=== PATIENT | male | born 1965 | race Caucasian/White ===

== ENCOUNTER 2021-12-30 06:12 | Emergency (ER) | payer MEDICAID ==
[~2021-12-30] VITALS: Ht 180.3 cm; Wt 127.3 kg
[2021-12-30 06:39] VITALS: BP 118/69
== END 2021-12-30 08:35 | disposition left against medical advice (07) ==
LOC: ER 06:14
DX: T23.022A Burn of unspecified degree of single left finger (nail) except thumb, initial encounter (principal); Z53.21 Procedure and treatment not carried out due to patient leaving prior to being seen by health care provider; X19.XXXA Contact with other heat and hot substances, initial encounter; Y93.89 Activity, other specified; Y92.89 Other specified places as the place of occurrence of the external cause; Y99.8 Other external cause status

== ENCOUNTER 2021-12-31 12:17 | Emergency (ER) | payer MEDICAID ==
[~2021-12-31] VITALS: Ht 180.3 cm; Wt 123.6 kg
[2021-12-31 13:40] LABS: BASOPHILS # (AUTO) 0.1 X10'3 (0-0.2); BASOPHILS % (AUTO) 0.9 % (0-1); EOSINOPHILS # (AUTO) 0.1 X10'3 (0-0.9); EOSINOPHILS % (AUTO) 1.4 % (0-6); HEMOGLOBIN 14.8 g/dl (14.0-17.9); LYMPHOCYTES # (AUTO) 1.8 X10'3 (1.1-4.8); LYMPHOCYTES % (AUTO) 22.8 % (21-51); MEAN CORPUSCULAR HEMOGLOBIN 29.9 PG (27.0-31.0); MEAN CORPUSCULAR HGB CONC 33.7 g/dL (33.0-36.5); MEAN CORPUSCULAR VOLUME 88.8 FL (78-98); MEAN PLATELET VOLUME 7.6 FL (7.4-10.4); MONOCYTES # (AUTO) 0.4 X10'3 (0-0.9); MONOCYTES % (AUTO) 4.7 % (2-12); NEUTROPHILS # (AUTO) 5.6 X10'3 (1.8-7.7); NEUTROPHILS % (AUTO) 70.2 % (42-75); PLATELET COUNT 205 X10'3 (140-440); RED BLOOD COUNT 4.95 X10'6 (4.70-6.10)
[2021-12-31 13:48] LABS: ALANINE AMINOTRANSFERASE 23 U/L (12-78); ALBUMIN 3.8 G/DL (3.4-5.0); ALBUMIN/GLOBULIN RATIO 1.1 (1.1-1.5); ALKALINE PHOSPHATASE 70 IU/L (46-116); ANION GAP 14 (8-16); ASPARTATE AMINO TRANSFERASE 20 U/L (10-37); BILIRUBIN,TOTAL 0.2 MG/DL (0.1-1.0); BLOOD UREA NITROGEN 14 MG/DL (7-18); BUN/CREATININE RATIO 19.7 (5.4-32.0); CALCIUM 8.2 MG/DL (8.5-10.1); CHLORIDE 104 MMOL/L (99-107); CREATININE 0.71 MG/DL (0.60-1.10); GLUCOSE 97 MG/DL (70-104); POTASSIUM 3.7 MMOL/L (3.5-5.1); SODIUM 142 MMOL/L (135-145); TOTAL CARBON DIOXIDE 24.4 MMOL/L (24-32); TOTAL PROTEIN 7.3 G/DL (6.4-8.2); eGFR > 90 ML/MIN
[2021-12-31 13:54] LABS: ETHANOL 0.303 GM/DL (0.0-0.010)
[2021-12-31 14:26] VITALS: BP 143/79
--- NOTE | 2021-12-31 14:59 | NUR ---
PT PASSED AMBULATION TRIAL, APPPROX 100 FEET WITH STEADY GAIT. PROVIDER PRESENT AND AWARE.
== END 2021-12-31 15:00 | disposition home or self-care (01) ==
LOC: ER 12:17
DX: F10.129 Alcohol abuse with intoxication, unspecified (principal); R41.82 Altered mental status, unspecified; Y90.9 Presence of alcohol in blood, level not specified
CPT/HCPCS: 36415; 70450; 80053; 80320; 85025; 99284

== ENCOUNTER 2021-12-31 20:10 | Emergency (ER) | payer MEDICAID ==
[~2021-12-31] VITALS: Ht 175.3 cm; Wt 123.0 kg
[2021-12-31] MEDS ORDERED: naloxone 0.4 mg/ml inj IV ONE (20:20)
[2021-12-31] MEDS ORDERED: normal saline 1000ML IV soln IVB ONE (20:25)
[2021-12-31] MEDS ORDERED: naloxone 2mg/2ml inj IV ONE (20:25)
[2021-12-31 20:44] LABS: BASOPHILS # (AUTO) 0.1 X10'3 (0-0.2); BASOPHILS % (AUTO) 1.4 % (0-1); EOSINOPHILS # (AUTO) 0.1 X10'3 (0-0.9); EOSINOPHILS % (AUTO) 1.7 % (0-6); HEMATOCRIT 43.9 % (42.0-52.0); HEMOGLOBIN 14.8 g/dl (14.0-17.9); LYMPHOCYTES # (AUTO) 1.9 X10'3 (1.1-4.8); MEAN CORPUSCULAR HEMOGLOBIN 29.8 PG (27.0-31.0); MEAN CORPUSCULAR HGB CONC 33.7 g/dL (33.0-36.5); MEAN CORPUSCULAR VOLUME 88.5 FL (78-98); MEAN PLATELET VOLUME 7.7 FL (7.4-10.4); MONOCYTES # (AUTO) 0.5 X10'3 (0-0.9); MONOCYTES % (AUTO) 5.5 % (2-12); NEUTROPHILS # (AUTO) 5.8 X10'3 (1.8-7.7); NEUTROPHILS % (AUTO) 68.4 % (42-75); PLATELET COUNT 222 X10'3 (140-440); RED BLOOD COUNT 4.97 X10'6 (4.70-6.10); RED CELL DISTRIBUTION WIDTH 12.7 % (11.5-14.5); WHITE BLOOD COUNT 8.5 X10'3 (4.5-11.0)
[2021-12-31 20:56] LABS: ALANINE AMINOTRANSFERASE 27 U/L (12-78); ALBUMIN 3.9 G/DL (3.4-5.0); ALBUMIN/GLOBULIN RATIO 1.1 (1.1-1.5); ALKALINE PHOSPHATASE 74 IU/L (46-116); ANION GAP 14 (8-16); ASPARTATE AMINO TRANSFERASE 21 U/L (10-37); BILIRUBIN,TOTAL 0.2 MG/DL (0.1-1.0); BLOOD UREA NITROGEN 16 MG/DL (7-18); BUN/CREATININE RATIO 19.3 (5.4-32.0); CALCIUM 8.3 MG/DL (8.5-10.1); CHLORIDE 104 MMOL/L (99-107); CREATININE 0.83 MG/DL (0.60-1.10); GLUCOSE 108 MG/DL (70-104); POTASSIUM 3.8 MMOL/L (3.5-5.1); SODIUM 142 MMOL/L (135-145); TOTAL CARBON DIOXIDE 23.8 MMOL/L (24-32); TOTAL PROTEIN 7.6 G/DL (6.4-8.2); eGFR > 90 ML/MIN
[2021-12-31 20:59] LABS: ETHANOL 0.367 GM/DL (0.0-0.010)
--- NOTE | 2021-12-31 22:12 | NUR ---
Patient snoring, still ALOC. Vitals are WNL.
[2022-01-01 05:43] VITALS: BP 153/62
[2022-01-02] MEDS ORDERED: NO HOME MEDS (13:00)
== END 2022-01-01 05:47 | disposition home or self-care (01) ==
LOC: ER 20:10
DX: F10.129 Alcohol abuse with intoxication, unspecified (principal); R41.82 Altered mental status, unspecified; Y90.9 Presence of alcohol in blood, level not specified
CPT/HCPCS: 36415; 71045; 80053; 80320; 85025; 93005; 96361; 96374; 99285; J2310; J7030

== ENCOUNTER 2022-01-02 10:19 | Emergency (ER) | payer MEDICAID, OTHER ==
[~2022-01-02] VITALS: Ht 180.3 cm; Wt 127.3 kg
--- NOTE | 2022-01-02 11:45 | NUR ---
Pt reports "I am going to kill myself and no one is listening to me." VIKTOR Crain notified. When asked if patient had a plan to kill himself, pt reponded with "I took 14 tablets of Vicodin." Pt reports taking Vicodin tablets within last 24 hours but does not recall what time. Pt reports taking alcohol and reports current intoxication. Poison control called at 1150 to report excessive use of Vicodin. Poison control recommended drawing labs to measure acetaminophen levels and use antidote as necessary. VIKTOR Crain notified of Poison Control's recommendations. Will continue to monitor.
[2022-01-02 12:17] LABS: BASOPHILS # (AUTO) 0.1 X10'3 (0-0.2); BASOPHILS % (AUTO) 0.7 % (0-1); EOSINOPHILS # (AUTO) 0.1 X10'3 (0-0.9); EOSINOPHILS % (AUTO) 1.3 % (0-6); HEMOGLOBIN 14.6 g/dl (14.0-17.9); LYMPHOCYTES # (AUTO) 1.8 X10'3 (1.1-4.8); LYMPHOCYTES % (AUTO) 20.1 % (21-51); MEAN CORPUSCULAR HEMOGLOBIN 30.3 PG (27.0-31.0); MEAN CORPUSCULAR VOLUME 88.9 FL (78-98); MEAN PLATELET VOLUME 7.5 FL (7.4-10.4); MONOCYTES # (AUTO) 0.5 X10'3 (0-0.9); NEUTROPHILS # (AUTO) 6.7 X10'3 (1.8-7.7); NEUTROPHILS % (AUTO) 72.9 % (42-75); PLATELET COUNT 193 X10'3 (140-440); RED BLOOD COUNT 4.84 X10'6 (4.70-6.10); WHITE BLOOD COUNT 9.2 X10'3 (4.5-11.0)
[2022-01-02 12:37] LABS: CLARITY,URINE CLEAR (Clear); COLOR,URINE YELLOW (Yellow); GLUCOSE, URINE NEGATIVE (Neg); KETONES,URINE 15 mg/dl (Neg); LEUKOCYTE ESTERASE ,URINE NEGATIVE (Neg); NITRITES, URINE NEGATIVE (Neg); OCCULT BLOOD,URINE TRACE-INTACT (Neg); PROTEIN,URINE NEGATIVE (Neg); UROBILINOGEN,URINE 0.2 E.U/dL (0.2-1.0)
[2022-01-02 12:39] LABS: UA COLLECTION TYPE NON-SPECIFIED
[2022-01-02 12:39] LABS: ALANINE AMINOTRANSFERASE 28 U/L (12-78); ALBUMIN 3.6 G/DL (3.4-5.0); ALKALINE PHOSPHATASE 72 IU/L (46-116); ANION GAP 14 (8-16); ASPARTATE AMINO TRANSFERASE 26 U/L (10-37); BILIRUBIN,TOTAL 0.3 MG/DL (0.1-1.0); BLOOD UREA NITROGEN 14 MG/DL (7-18); BUN/CREATININE RATIO 18.7 (5.4-32.0); CALCIUM 8.6 MG/DL (8.5-10.1); CHLORIDE 102 MMOL/L (99-107); CREATININE 0.75 MG/DL (0.60-1.10); GLUCOSE 103 MG/DL (70-104); POTASSIUM 3.7 MMOL/L (3.5-5.1); SODIUM 141 MMOL/L (135-145); TOTAL PROTEIN 7.1 G/DL (6.4-8.2); eGFR > 90 ML/MIN
[2022-01-02 12:40] LABS: URINE AMPHETAMINE SCREEN NEGATIVE (Neg); URINE BARBITUATE SCREEN NEGATIVE (Neg); URINE BENZODIAZEPINES SCREEN NEGATIVE (Neg); URINE CANNABINOID SCREEN NEGATIVE (Neg); URINE COCAINE SCREEN NEGATIVE (Neg); URINE METHADONE SCREEN NEGATIVE (Neg); URINE OPIATE SCREEN NEGATIVE (Neg); URINE PHENCYCLIDINE SCREEN NEGATIVE (Neg)
[2022-01-02 12:45] LABS: ETHANOL 0.261 GM/DL (0.0-0.010)
[2022-01-02 12:47] LABS: SQUAMOUS EPITHELIAL CELL,UR FEW /LPF (FEW)
[2022-01-02 12:48] LABS: BACTERIA,URINE FEW /HPF (Neg); RBC,URINE 0-2 /HPF (0-2); WBC,URINE 0-4 /HPF (0-4)
[2022-01-02 12:51] LABS: ACETAMINOPHEN < 2.0 UG/ML (10-30)
[2022-01-02] MEDS ORDERED: NO HOME MEDS (13:00)
--- NOTE | 2022-01-02 16:11 | NUR ---
Chi from Poison Control and was given update. No more suggestions from Poison Control.
--- NOTE | 2022-01-02 17:58 | NUR ---
Patient is sleeping on his right side. He has self repositioned. No distress.
--- NOTE | 2022-01-02 19:00 | NUR ---
Pt resting quietly in bed
--- NOTE | 2022-01-02 22:00 | NUR ---
Pt resting quietly in bed, no needs identified
--- NOTE | 2022-01-03 01:00 | NUR ---
PT is sleeping on R side respirations even and unlobored
--- NOTE | 2022-01-03 03:47 | NUR ---
pt is resting in bed quietly, drinking water
[2022-01-03 05:14] VITALS: BP 146/56
--- NOTE | 2022-01-03 07:06 | NUR ---
Received Pt in bed sleeping w/o distress at this time.
--- NOTE | 2022-01-03 09:00 | NUR ---
Pt ate breakfast and used bathroom. Pt quiet and responds to questions with short answers. Pt would like to stay here for a few days and then get back into sober living at [facility].
== END 2022-01-03 13:06 | disposition home or self-care (01) ==
LOC: ER 10:20
DX: I87.2 Venous insufficiency (chronic) (peripheral) (principal); Z20.822 Contact with and (suspected) exposure to COVID-19; R45.851 Suicidal ideations; F10.10 Alcohol abuse, uncomplicated; R22.43 Localized swelling, mass and lump, lower limb, bilateral; I10 Essential (primary) hypertension; Y90.8 Blood alcohol level of 240 mg/100 ml or more
CPT/HCPCS: 36415; 80053; 80305; 80320; 80329; 81001; 84443; 85025; 87811; 99285

== ENCOUNTER 2022-01-03 17:12 | Emergency (ER) | payer MEDICAID, OTHER ==
[~2022-01-03] VITALS: Ht 180.3 cm; Wt 127.2 kg
[~2022-01-03 17:12] MED LIST: NO HOME MEDS
[2022-01-03 17:25] VITALS: BP 135/88
== END 2022-01-03 18:01 | disposition left against medical advice (07) ==
LOC: ER 17:13
DX: F10.129 Alcohol abuse with intoxication, unspecified (principal); Z53.21 Procedure and treatment not carried out due to patient leaving prior to being seen by health care provider; Y90.9 Presence of alcohol in blood, level not specified

== ENCOUNTER 2022-01-07 10:21 | Emergency (ER) | payer MEDICAID ==
[~2022-01-07] VITALS: Ht 180.3 cm; Wt 122.7 kg
[2022-01-07 11:42] VITALS: BP 138/95
== END 2022-01-07 12:35 | disposition home or self-care (01) ==
LOC: ER 10:22
DX: I10 Essential (primary) hypertension (principal); Z72.89 Other problems related to lifestyle; Z59.00 Homelessness unspecified
CPT/HCPCS: 99281

== ENCOUNTER 2022-02-02 15:32 | Emergency (ER) | payer MEDICAID ==
[~2022-02-02] VITALS: Ht 180.3 cm; Wt 101.8 kg
[2022-02-02 15:58] VITALS: BP 152/81
[2022-02-02] MEDS ORDERED: NEOM10DR45 OT (16:04)
== END 2022-02-02 16:15 | disposition home or self-care (01) ==
LOC: ER 15:33
DX: S00.441A External constriction of right ear, initial encounter (principal); I10 Essential (primary) hypertension; Z59.00 Homelessness unspecified; W49.09XA Other specified item causing external constriction, initial encounter; Y93.89 Activity, other specified; Y92.89 Other specified places as the place of occurrence of the external cause; Y99.8 Other external cause status; H92.03 Otalgia, bilateral
CPT/HCPCS: 99283

== ENCOUNTER 2022-02-07 18:15 | Emergency (ER) | payer MEDICAID ==
[~2022-02-07] VITALS: Ht 175.3 cm; Wt 101.0 kg
[~2022-02-07 18:15] MED LIST changes: +NEOM10DR45 OT
[2022-02-07] MEDS ORDERED: normal saline 1000ML IV soln IVB ONE (21:00)
[2022-02-07 21:24] LABS: BASOPHILS % (AUTO) 0.4 % (0-1); EOSINOPHILS # (AUTO) 0.2 X10'3 (0-0.9); EOSINOPHILS % (AUTO) 3.5 % (0-6); HEMATOCRIT 41.6 % (42.0-52.0); LYMPHOCYTES # (AUTO) 2.5 X10'3 (1.1-4.8); LYMPHOCYTES % (AUTO) 38.8 % (21-51); MEAN CORPUSCULAR HGB CONC 33.7 g/dL (33.0-36.5); MEAN PLATELET VOLUME 8.1 FL (7.4-10.4); MONOCYTES # (AUTO) 0.4 X10'3 (0-0.9); MONOCYTES % (AUTO) 5.9 % (2-12); NEUTROPHILS # (AUTO) 3.3 X10'3 (1.8-7.7); NEUTROPHILS % (AUTO) 51.4 % (42-75); PLATELET COUNT 169 X10'3 (140-440); RED BLOOD COUNT 4.68 X10'6 (4.70-6.10); RED CELL DISTRIBUTION WIDTH 13.8 % (11.5-14.5); WHITE BLOOD COUNT 6.4 X10'3 (4.5-11.0)
[2022-02-07 21:29] LABS: ALANINE AMINOTRANSFERASE 24 U/L (12-78); ALBUMIN 3.4 G/DL (3.4-5.0); ALKALINE PHOSPHATASE 70 IU/L (46-116); ANION GAP 7 (8-16); ASPARTATE AMINO TRANSFERASE 22 U/L (10-37); BILIRUBIN,TOTAL 0.2 MG/DL (0.1-1.0); BLOOD UREA NITROGEN 15 MG/DL (7-18); BUN/CREATININE RATIO 16.7 (5.4-32.0); CALCIUM 8.3 MG/DL (8.5-10.1); CHLORIDE 108 MMOL/L (99-107); GLUCOSE 103 MG/DL (70-104); SODIUM 140 MMOL/L (135-145); TOTAL CARBON DIOXIDE 24.7 MMOL/L (24-32); TOTAL PROTEIN 6.9 G/DL (6.4-8.2); eGFR 86 ML/MIN
[2022-02-07 21:30] LABS: POTASSIUM 3.6 MMOL/L (3.5-5.1)
--- NOTE | 2022-02-07 22:45 | NUR ---
PT STABLE FOR DC PER DR. ALEXANDER. REMOVED PIV. PT ASKED TO GO TO BATHROOM. PT WALKE OUT OF ED WITHOUT SIGNING DC PAPERS. BRANCH OPERATIONS COORDINATOR NOTIIFED.
== END 2022-02-07 22:51 | disposition home or self-care (01) ==
LOC: ER 18:15
DX: F10.129 Alcohol abuse with intoxication, unspecified (principal); I10 Essential (primary) hypertension; Z59.00 Homelessness unspecified; Z56.0 Unemployment, unspecified; Y90.9 Presence of alcohol in blood, level not specified
CPT/HCPCS: 36415; 71045; 80053; 80320; 85025; 93005; 99285; J7030

== ENCOUNTER 2022-02-09 16:13 | Emergency (ER) | payer MEDICAID ==
[~2022-02-09] VITALS: Ht 180.3 cm; Wt 127.0 kg
[2022-02-09 16:37] VITALS: BP 124/70
== END 2022-02-09 18:50 | disposition left against medical advice (07) ==
LOC: ER 16:14
DX: R45.851 Suicidal ideations (principal); Z53.21 Procedure and treatment not carried out due to patient leaving prior to being seen by health care provider

== ENCOUNTER 2022-02-10 19:51 | Emergency (ER) | payer MEDICAID ==
[~2022-02-10] VITALS: Ht 180.3 cm; Wt 275.0 kg
[2022-02-10 20:27] VITALS: BP 148/85
--- NOTE | 2022-02-10 21:00 | NUR ---
Upon discharge, pt was refusing to leave and he required a information security specialist off the property.
== END 2022-02-10 21:16 | disposition home or self-care (01) ==
LOC: ER 19:52
DX: F10.920 Alcohol use, unspecified with intoxication, uncomplicated (principal); M25.561 Pain in right knee; M25.562 Pain in left knee; I10 Essential (primary) hypertension; Z59.00 Homelessness unspecified; Z56.0 Unemployment, unspecified
CPT/HCPCS: 99284

== ENCOUNTER 2022-02-11 13:11 | Emergency (ER) | payer MEDICAID ==
[~2022-02-11] VITALS: Ht 180.3 cm; Wt 123.6 kg
[2022-02-11] MEDS ORDERED: normal saline 1000ML IV soln IVB ONE (13:35)
[2022-02-11] MEDS ORDERED: thiamine 100mg/ml 2ml inj. IV ONE (13:35)
[2022-02-11] MEDS ORDERED: folic acid 1mg/0.2ml inj IV ONE (13:35)
[2022-02-11 14:13] LABS: BASOPHILS # (AUTO) 0.1 X10'3 (0-0.2); EOSINOPHILS # (AUTO) 0.1 X10'3 (0-0.9); EOSINOPHILS % (AUTO) 1.8 % (0-6); HEMATOCRIT 43.8 % (42.0-52.0); HEMOGLOBIN 15.2 g/dl (14.0-17.9); LYMPHOCYTES # (AUTO) 2.1 X10'3 (1.1-4.8); LYMPHOCYTES % (AUTO) 33.3 % (21-51); MEAN CORPUSCULAR HEMOGLOBIN 30.2 PG (27.0-31.0); MEAN CORPUSCULAR HGB CONC 34.7 g/dL (33.0-36.5); MEAN CORPUSCULAR VOLUME 87.1 FL (78-98); MEAN PLATELET VOLUME 7.8 FL (7.4-10.4); MONOCYTES # (AUTO) 0.4 X10'3 (0-0.9); MONOCYTES % (AUTO) 7.2 % (2-12); NEUTROPHILS # (AUTO) 3.5 X10'3 (1.8-7.7); NEUTROPHILS % (AUTO) 56.7 % (42-75); PLATELET COUNT 187 X10'3 (140-440); RED BLOOD COUNT 5.03 X10'6 (4.70-6.10); RED CELL DISTRIBUTION WIDTH 13.8 % (11.5-14.5); WHITE BLOOD COUNT 6.2 X10'3 (4.5-11.0)
--- NOTE | 2022-02-11 14:20 | NUR ---
Ordered folic acid not available on unit
[2022-02-11 14:24] LABS: ALANINE AMINOTRANSFERASE 32 U/L (12-78); ALBUMIN 3.5 G/DL (3.4-5.0); ALBUMIN/GLOBULIN RATIO 0.9 (1.1-1.5); ALKALINE PHOSPHATASE 82 IU/L (46-116); ANION GAP 13 (8-16); ASPARTATE AMINO TRANSFERASE 23 U/L (10-37); BILIRUBIN,TOTAL 0.3 MG/DL (0.1-1.0); BLOOD UREA NITROGEN 11 MG/DL (7-18); BUN/CREATININE RATIO 14.7 (5.4-32.0); CALCIUM 8.2 MG/DL (8.5-10.1); CHLORIDE 108 MMOL/L (99-107); CREATININE 0.75 MG/DL (0.60-1.10); GLUCOSE 111 MG/DL (70-104); POTASSIUM 3.4 MMOL/L (3.5-5.1); SODIUM 145 MMOL/L (135-145); TOTAL CARBON DIOXIDE 24.2 MMOL/L (24-32); TOTAL PROTEIN 7.6 G/DL (6.4-8.2); eGFR > 90 ML/MIN
[2022-02-11 14:59] LABS: ETHANOL 0.303 GM/DL (0.0-0.010)
--- NOTE | 2022-02-11 15:20 | NUR ---
Patient sitting up on stretcher and awake, a/ox4, speaking clearly in full sentences. Patient stood up and ambulated without difficulty or assistance. Stated "I'm ready to go". IV d/c by RN, bleeding controlled, gauze and tape applied.
[2022-02-11 17:50] VITALS: BP 145/62
== END 2022-02-11 18:38 | disposition home or self-care (01) ==
LOC: ER 13:12
DX: F10.129 Alcohol abuse with intoxication, unspecified (principal); Z02.89 Encounter for other administrative examinations; I10 Essential (primary) hypertension; Z59.00 Homelessness unspecified; Z56.0 Unemployment, unspecified; Z79.899 Other long term (current) drug therapy; Y90.8 Blood alcohol level of 240 mg/100 ml or more
CPT/HCPCS: 36415; 80053; 80320; 85025; 96361; 96374; 96375; 99285; J3411; J3490; J7030